=== PATIENT | male | born 1955 | race African-American/Black ===

== ENCOUNTER 2016-11-12 06:59 | Emergency (ER) | payer OTHER ==
[2016-11-12] MEDS ORDERED: SODIUM CHLORIDE 0.9% 1,000 ML IV STA (07:18)
[2016-11-12 07:39] LABS: Aty Lym Flag Moderate; CH 30.6; CHCM 32.3; HCT 41.6 % (39.0-53.0); HDW 2.26; HGB 13.3 gm/dL (13.0-17.5); MCH 30.6 pg (25.0-35.0); MCV 95.4 fL (80.0-100.0); Mean Platelet Volume 8.4; RBC 4.36 m/uL (4.30-5.90); RDW 15.6 % (11.5-15.5); WBC 3.3 k/uL (3.8-10.6); WBC (Perox) 3.12
[2016-11-12 07:51] LABS: ALT 41 U/L (21-72); AST 57 U/L (17-59); Alkaline Phosphatase 56 U/L (38-126); Anion Gap 13 mmol/L; Blood Urea Nitrogen 9 mg/dL (9-20); Calcium 9.1 mg/dL (8.4-10.2); Carbon Dioxide 26 mmol/L (22-30); Chloride 108 mmol/L (98-107); Glucose 94 mg/dL (74-99); Magnesium 1.9 mg/dL (1.6-2.3); Non-African American GFR(MDRD) >60 (>60 ml/min/1.73 sqM); Phosphorous 4.8 mg/dL (2.5-4.5); Sodium 147 mmol/L (137-145); Total Bilirubin 0.5 mg/dL (0.2-1.3); Total Protein 7.3 g/dL (6.3-8.2)
--- NOTE | 2016-11-12 07:53 | XR ---
EXAMINATION TYPE: XR chest 2V DATE OF EXAM: 11/12/2016 7:49 AM COMPARISON: 09/15/2015 HISTORY: Shortness of breath TECHNIQUE: Frontal and lateral views of the chest are obtained. FINDINGS: Scattered senescent parenchymal changes noted. Hyperinflation compatible with COPD. No evidence for infiltrate. No evidence for atelectasis. Heart size is stable. Mediastinal structures are stable and grossly unremarkable. No evidence for hilar prominence. Degenerative changes dorsal spine. IMPRESSION: 1. No evidence for acute pulmonary disease.
[2016-11-12 08:04] LABS: Creatine Kinase 419 U/L (55-170)
[2016-11-12 08:16] LABS: Troponin I <0.012 ng/mL (0.000-0.034)
[2016-11-12 08:42] LABS: Add Differential Manual Differential
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
[2016-11-12 08:44] LABS: Nucleated Red Blood Cells 0 /100 WBC (0-0); Total Cells Counted 100
[2016-11-12 08:46] LABS: Manual Review Performed
[2016-11-12 12:06] VITALS: BP 112/65; PULSE 70; RESP 16; TEMP 97.5
== END 2016-11-12 12:12 | disposition home or self-care (01) ==
LOC: EC 06:59
DX: F10.129 Alcohol abuse with intoxication, unspecified (principal); F17.200 Nicotine dependence, unspecified, uncomplicated; Z79.51 Long term (current) use of inhaled steroids; Z79.899 Other long term (current) drug therapy
CPT/HCPCS: 36415; 71020; 80053; 82075; 82550; 82553; 83735; 84100; 84484; 85025; 93005; 96360; 96361; 99285

== ENCOUNTER 2018-04-20 01:44 | Inpatient (IN) | payer MEDICARE, OTHER ==
[2018-04-20] MEDS ORDERED: methylPREDNISolone SOD SUCCI 125 MG/2 ML VIAL IV STA (01:53)
[2018-04-20] MEDS ORDERED: IPRATROPIUM-ALBUTEROL 3 ML NEB INHALATION STA (01:53)
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
--- NOTE | 2018-04-20 02:40 | XR ---
EXAMINATION TYPE: XR chest 2V DATE OF EXAM: 04/20/2018 COMPARISON: 11/12/2016 HISTORY: Difficulty breathing TECHNIQUE: Frontal and lateral views of the chest are obtained. FINDINGS: Heart and mediastinum are normal. Lungs are clear. Diaphragm is normal. Bony thorax is int act. Pulmonary vascularity is normal. IMPRESSION: No cardiopulmonary disease.. No change. There is some calcific change at the right corac oclavicular ligament.
[2018-04-20 02:45] LABS: HCT 42.8 % (39.0-53.0); HGB 13.8 gm/dL (13.0-17.5); MCH 30.4 pg (25.0-35.0); MCHC 32.3 g/dL (31.0-37.0); MCV 94.4 fL (80.0-100.0); Mean Platelet Volume 9.4; Platelet Count 141 k/uL (150-450); RBC 4.53 m/uL (4.30-5.90); RDW 14.9 % (11.5-15.5); WBC 2.2 k/uL (3.8-10.6)
[2018-04-20 02:51] LABS: ALT 102 U/L (21-72); AST 203 U/L (17-59); Albumin 4.1 g/dL (3.5-5.0); Alkaline Phosphatase 52 U/L (38-126); Anion Gap 11 mmol/L; Blood Urea Nitrogen 11 mg/dL (9-20); Calcium 9.1 mg/dL (8.4-10.2); Carbon Dioxide 26 mmol/L (22-30); Chloride 108 mmol/L (98-107); Glucose 141 mg/dL (74-99); Magnesium 1.5 mg/dL (1.6-2.3); Phosphorus 4.4 mg/dL (2.5-4.5); Potassium 4.2 mmol/L (3.5-5.1); Sodium 145 mmol/L (137-145); Total Bilirubin 0.4 mg/dL (0.2-1.3); Total Protein 6.8 g/dL (6.3-8.2)
[2018-04-20 03:06] LABS: Eosinophils # (M) 0.13 k/uL (0-0.7); Lymphocytes # (M) 0.66 k/uL (1.0-4.8); Neutrophils # (M) 1.21 k/uL (1.3-7.7); Neutrophils % (M) 55 %; Nucleated Red Blood Cells 0 /100 WBC (0-0); Total Cells Counted 100
[2018-04-20] MEDS ORDERED: ALBUTEROL NEBULIZED 2.5 MG/3 ML INHALATION STA ×2 (03:11→03:12)
[2018-04-20] MEDS ORDERED: SODIUM CHLORIDE 0.9% 1,000 ML IV STA (04:05)
[2018-04-20] MEDS ORDERED: LORazepam 2 MG/ML INJ IV PRN ×2 (04:06)
[2018-04-20] MEDS ORDERED: IPRATROPIUM-ALBUTEROL 3 ML NEB INHALATION PRN (04:10)
[2018-04-20] MEDS: SODIUM CHLORIDE 0.9% 1,000 ML IV SCH ×2 (04:52→18:05)
[2018-04-20 06:32] LABS: Glucose,Whole Blood 114 mg/dL (75-99)
[2018-04-20 06:55] VITALS: BMI 19.6
[2018-04-20 07:14] LABS: Glucose,Whole Blood 180 mg/dL (75-99)
[2018-04-20] MEDS: ALBUTEROL NEBULIZED 2.5 MG/3 ML INHALATION SCH ×4 (07:52→19:26)
[2018-04-20] MEDS: LORazepam 2 MG/ML INJ IV PRN ×3 (08:26→21:53)
[2018-04-20] MEDS ORDERED: predniSONE 20 MG TAB PO SCH (09:00)
[2018-04-20 11:26] LABS: Glucose,Whole Blood 392 mg/dL (75-99)
[2018-04-20] MEDS: INSULIN ASPART 100 UNIT/ML 1 ML 10 ML VIAL SQ SCH ×3 (11:37→21:41)
[2018-04-20] MEDS: THIAMINE 100 MG TAB PO SCH (13:25)
[2018-04-20] MEDS: FOLIC ACID 1 MG TAB PO SCH (13:25)
[2018-04-20] MEDS ORDERED: SODIUM CHLORIDE 0.9% 1,000 ML with MVI, ADULT NO.4 WITH VIT K 10 ML, THIAMINE 100 MG, F... IV ONE ×4 (15:34)
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
[2018-04-20] MEDS: 1: MVI, ADULT NO.4 WITH VIT K 10 ML, THIAMINE 100 MG, FOLIC ACID 1 MG in SODIUM CHLORIDE IV SCH ×4 (16:18)
[2018-04-20] MEDS: NICOTINE 21MG/24HR PATCH TRANSDERM SCH (16:19)
[2018-04-20] MEDS: HEPARIN SODIUM,PORCINE 5,000 UNIT/ML 1 ML VIAL SQ SCH ×2 (16:19→21:40)
[2018-04-20 17:11] LABS: Glucose,Whole Blood 137 mg/dL (75-99)
[2018-04-20 19:35] LABS: Hemoglobin A1C 5.9 % (4.0-6.0)
[2018-04-20 21:18] LABS: Glucose,Whole Blood 200 mg/dL (75-99)
[2018-04-20] MEDS: FAMOTIDINE 20 MG/2 ML VIAL IV SCH (21:38)
[2018-04-21] MEDS: LORazepam 2 MG/ML INJ IV PRN ×3 (00:44→13:15)
[2018-04-21 06:15] VITALS: RESP 16; TEMP 98.2
[2018-04-21] MEDS: SODIUM CHLORIDE 0.9% 1,000 ML IV SCH (06:37)
[2018-04-21] MEDS: 1: MVI, ADULT NO.4 WITH VIT K 10 ML, THIAMINE 100 MG, FOLIC ACID 1 MG in SODIUM CHLORIDE IV SCH ×4 (06:37)
[2018-04-21 07:36] LABS: Glucose,Whole Blood 91 mg/dL (75-99)
[2018-04-21] MEDS: ALBUTEROL NEBULIZED 2.5 MG/3 ML INHALATION SCH ×2 (07:38→11:14)
[2018-04-21] MEDS: INSULIN ASPART 100 UNIT/ML 1 ML 10 ML VIAL SQ SCH ×2 (07:48→13:19)
[2018-04-21] MEDS ORDERED: predniSONE 20 MG TAB PO SCH (09:00)
[2018-04-21 09:25] LABS: Basophils % (A) 0 %; Eosinophils # (A) 0.1 k/uL (0-0.7); Eosinophils % (A) 2 %; HCT 41.3 % (39.0-53.0); HGB 13.4 gm/dL (13.0-17.5); Lymphocytes # (A) 0.5 k/uL (1.0-4.8); Lymphocytes % (A) 15 %; MCH 30.5 pg (25.0-35.0); MCHC 32.5 g/dL (31.0-37.0); MCV 93.9 fL (80.0-100.0); Monocytes # (A) 0.2 k/uL (0-1.0); Monocytes % (A) 7 %; Neutrophils # (A) 2.7 k/uL (1.3-7.7); Neutrophils % (A) 76 %; Platelet Count 118 k/uL (150-450); RBC 4.39 m/uL (4.30-5.90); RDW 14.6 % (11.5-15.5); WBC 3.5 k/uL (3.8-10.6)
[2018-04-21 09:40] LABS: ALT 96 U/L (21-72); AST 157 U/L (17-59); Alkaline Phosphatase 54 U/L (38-126); Anion Gap 7 mmol/L; Bilirubin, Delta 0.2 mg/dL (0.0-0.2); Bilirubin,Unconjugated 0.6 mg/dL (0.0-1.1); Blood Urea Nitrogen 10 mg/dL (9-20); Calcium 9.3 mg/dL (8.4-10.2); Carbon Dioxide 31 mmol/L (22-30); Chloride 100 mmol/L (98-107); Glucose 108 mg/dL (74-99); Magnesium 1.4 mg/dL (1.6-2.3); Potassium 3.9 mmol/L (3.5-5.1); Sodium 138 mmol/L (137-145); Total Bilirubin 0.8 mg/dL (0.2-1.3); Total Protein 6.7 g/dL (6.3-8.2)
[2018-04-21] MEDS: NICOTINE 21MG/24HR PATCH TRANSDERM SCH (10:00)
[2018-04-21] MEDS: FAMOTIDINE 20 MG/2 ML VIAL IV SCH (10:00)
[2018-04-21] MEDS: HEPARIN SODIUM,PORCINE 5,000 UNIT/ML 1 ML VIAL SQ SCH (10:00)
[2018-04-21] MEDS ORDERED: Magnesium Replacement Protocol 1 EACH MISC MISCELLANE PRN (11:58)
[2018-04-21 12:01] VITALS: BP 142/87; PULSE 92
[2018-04-21] MEDS: THIAMINE 100 MG TAB PO SCH (12:05)
[2018-04-21] MEDS: FOLIC ACID 1 MG TAB PO SCH (12:05)
[2018-04-21] MEDS: MAGNESIUM SULFATE-D5W PMX 1 GM in DEXTROSE/WATER 1 100ML.BAG IVPB SCH ×3 (12:14→14:18)
[2018-04-21 12:27] LABS: Glucose,Whole Blood 112 mg/dL (75-99)
--- NOTE | 2018-04-21 13:30 | P.PN ---
Subjective This is a pleasant 62 years old female with past medical history of COPD, pneumonia, pulmonary embolism anticoagulation. current smoker and alcohol abuse. he presents because of worsening dyspnea over one week duration. states that he has long time complaints of dyspnea on and off on 4 months. over the last week it was getting worse although the patient was trying his best not to come to emergency room but eventually he decided to come. not associated with chest pain. patient states he has chronic cough and white phlegm 4 months. and 3 months history of bilateral knee pain. he states that he smokes about half pack per day. and drinks liquor/fourth About the point. they. last drink was 1 night prior to admission. patient admits to me using cocaine. Patient denies any urinary signs and symptoms. No change in bowel habits. He hadn't vomited one time about 3 days ago but not anymore however he felt nauseated currently on admission. No leg pain or induration per patient. By the time I saw the patient was still in me his breathing is almost at his baseline Patient states that he was diagnosed with PE about one year ago and I supposed to take a blood thinner but he stopped taking it after a short while by himself. is not on home oxygen on steroids. He has no history of seizure. And he doesn't follow up very well with outpatient [facility] On admission patient was noticed to be leukopenic with white BCs 2.2, platelets on the low side 141. High lactic acid 3.1 and 2.9. Hyperglycemia . Magnesium is 1.5. And liver enzymes were mildly elevated with a LT 102 and AST 203. Port is noted that oxygen saturation was 84 one time on room air, however currently is 99% on room air 04/21/2018 Patient has more tremors and jittery today with racing heart rate. And he needs his 3 more doses of Ativan since morning. Electrolytes been replaced. With the patient on magnesium oxide. Repeat labs showing improved leukopenia from 2.2 to 3.5K react lactic acid came back to normal at 0.9. Low magnesium was 1.4. Liver enzymes trending down from AST 203 to157, and a LT from 102 to 96. Physical therapy evaluation recommended home . Pulmonary consult for dyspnea, however patient telling me his breathing at baseline. He denies chest pain. No hemoptysis. No leg pain or swelling Objective - Vital Signs Vital signs: Vital Signs Temp 98.2 F 04/21/18 06:14 Pulse 92 04/21/18 12:00 Resp 16 04/21/18 06:14 BP 142/87 04/21/18 12:00 Pulse Ox 96 04/21/18 06:14 Intake & Output 04/20/18 04/21/18 04/21/18 18:59 06:59 18:59 Output Total 651 250 Balance -651 -250 Weight 69.5 kg Output: Urine 650 250 Emesis 1 Other: Voiding Method Urinal Urinal Urinal # Voids 1 1 # Bowel Movements 1 - Exam GENERAL: The patient is alert and oriented x3, not in any acute distress. Well developed, well nourished. HEENT: Pupils are round and equally reacting to light. EOMI. No scleral icterus. No conjunctival pallor. Normocephalic, atraumatic. No pharyngeal erythema. No thyromegaly. -CARDIOVASCULAR: S1 and S2 present. No murmurs, rubs, or gallops. Tachycardic -PULMONARY: Chest is clear to auscultation, no wheezing or crackles. Mild tachypnea ABDOMEN: Soft, nontender, nondistended, normoactive bowel sounds. No palpable organomegaly. MUSCULOSKELETAL: No joint swelling or deformity. -EXTREMITIES: No cyanosis, clubbing, or pedal edema. moderate hand tremor NEUROLOGICAL: Gross neurological examination did not reveal any focal deficits. SKIN: No rashes. - Labs CBC & Chem 7: 04/21/18 09:09 04/21/18 09:09 Labs: Abnormal Lab Results - Last 24 Hours (Table) 04/20/18 04/20/18 04/21/18 Range/Units 17:05 21:01 09:09 WBC 3.5 L (3.8-10.6) k/uL Plt Count 118 L (150-450) k/uL Lymphocytes # 0.5 L (1.0-4.8) k/uL Carbon Dioxide (22-30) mmol/L Creatinine (0.66-1.25) mg/dL Glucose (74-99) mg/dL POC Glucose (mg/dL) 137 H 200 H (75-99) mg/dL Magnesium (1.6-2.3) mg/dL AST (17-59) U/L ALT (21-72) U/L 04/21/18 04/21/18 Range/Units 09:09 12:24 WBC (3.8-10.6) k/uL Plt Count (150-450) k/uL Lymphocytes # (1.0-4.8) k/uL Carbon Dioxide 31 H (22-30) mmol/L Creatinine 0.59 L (0.66-1.25) mg/dL Glucose 108 H (74-99) mg/dL POC Glucose (mg/dL) 112 H (75-99) mg/dL Magnesium 1.4 L (1.6-2.3) mg/dL AST 157 H (17-59) U/L ALT 96 H (21-72) U/L Microbiology - Last 24 Hours (Table) 04/20/18 02:02 Blood Culture - Preliminary Blood No Growth after 24 hours Assessment and Plan Assessment: History of COPD, possible acute exacerbation Alcohol abuse, possible alcohol withdrawal Dehydration Hyperglycemia, we'll check for hemoglobin A1c Elevated liver enzymes, mostly secondary to alcoholism Ischemia Plan: This is a pleasant 62 years old male who presents because of alcohol abuse/ withdrawal, with possible COPD exacerbation. Patient was started on steroids, breathing treatments and oxygen. As well as normal saline for hydration. Patient also was started on a prednisone pills. Replace electrolytes. Start banana bag. Pulmonary consult. We'll continue to monitor her labs and vitals. Resume home medication. Continue with same treatment. Continue with symptomatic treatment. GI and DVT prophylaxis. Further recommendations based on the clinical course of the patient in Prophylaxis: Subcutaneous heparin GI prophylaxis: Pepcid PT/OT: Pending Prognosis is guarded
[2018-04-21] MEDS ORDERED: MAGNESIUM OXIDE 400 MG TAB PO SCH (21:00)
[2018-04-22] MEDS ORDERED: FAMOTIDINE 20 MG TAB PO SCH (09:00)
--- NOTE | 2018-04-22 09:44 | P.DS ---
Providers Date of admission: 04/21/18 14:41 Attending physician: Yasmin Adames Consults: 04/20/18 15:34 Consult Physician Urgent Consulting Provider: Mary Vidales Consult Reason/Comments: copd Do you want consulting provider notified?: Already Contacted Primary care physician: Stated None Hospital Course: please note this is not a true discharge summary because pt decided to leave AMA This is a pleasant 62 years old female with past medical history of COPD, pneumonia, pulmonary embolism anticoagulation. current smoker and alcohol abuse. he presents because of worsening dyspnea over one week duration. states that he has long time complaints of dyspnea on and off on 4 months. over the last week it was getting worse although the patient was trying his best not to come to emergency room but eventually he decided to come. not associated with chest pain. patient states he has chronic cough and white phlegm 4 months. and 3 months history of bilateral knee pain. he states that he smokes about half pack per day. and drinks liquor/fourth About the point. they. last drink was 1 night prior to admission. patient admits to me using cocaine. Patient denies any urinary signs and symptoms. No change in bowel habits. He hadn't vomited one time about 3 days ago but not anymore however he felt nauseated currently on admission. No leg pain or induration per patient. By the time I saw the patient was still in me his breathing is almost at his baseline Patient states that he was diagnosed with PE about one year ago and I supposed to take a blood thinner but he stopped taking it after a short while by himself. is not on home oxygen on steroids. He has no history of seizure. And he doesn't follow up very well with outpatient where [facility]. On admission patient was noticed to be leukopenic with white BCs 2.2, platelets on the low side 141. High lactic acid 3.1 and 2.9. Hyperglycemia . Magnesium is 1.5. And liver enzymes were mildly elevated with a LT 102 and AST 203. Port is noted that oxygen saturation was 84 one time on room air, however currently is 99% on room air 04/21/2018 Patient has more tremors and jittery today with racing heart rate. And he needs his 3 more doses of Ativan since morning. Electrolytes been replaced. With the patient on magnesium oxide. Repeat labs showing improved leukopenia from 2.2 to 3.5K react lactic acid came back to normal at 0.9. Low magnesium was 1.4. Liver enzymes trending down from AST 203 to157, and a LT from 102 to 96. Physical therapy evaluation recommended home . Pulmonary consult for dyspnea, however patient telling me his breathing at baseline. He denies chest pain. No hemoptysis. No leg pain or swelling i was called by the nurse later on on 04/21/2018 that pt wanted to sign leaving AMA, i asked the RN to talk to him to wait for me to come back but he did not want to wait for me and left AMA, based upon my evaluation pt has capacity to make medical decision . Patient Condition at Discharge: Stable Plan - Discharge Summary Discharge Rx Participant: No New Discharge Prescriptions: No Action Ranitidine HCl 150 mg PO BID Budesonide-Formot 160-4.5 Mcg [Symbicort 160-4.5 Mcg Inhaler] 2 puff INHALATION RT-BID Albuterol Sulfate [Ventolin HFA] 2 puff INHALATION RT-Q4H PRN PRN Reason: Wheezing Lisinopril [Zestril] 10 mg PO DAILY Ergocalciferol [Vitamin D2] 50,000 unit PO Q7D Discharge Medication List Albuterol Sulfate [Ventolin HFA] 2 puff INHALATION RT-Q4H PRN 11/12/16 [History] Budesonide-Formot 160-4.5 Mcg [Symbicort 160-4.5 Mcg Inhaler] 2 puff INHALATION RT-BID 11/12/16 [History] Ranitidine HCl 150 mg PO BID 11/12/16 [History] Ergocalciferol [Vitamin D2] 50,000 unit PO Q7D 04/20/18 [History] Lisinopril [Zestril] 10 mg PO DAILY 04/20/18 [History] Follow up Appointment(s)/Referral(s): None,Stated [Primary Care Provider] - 1-2 days Discharge Disposition: Left Against Medical Advice
== END 2018-04-21 15:00 | disposition left against medical advice (07) | DRG 191 ==
LOC: EC 01:44 → 4MS4W 04:39 → OBSVTOIN 04-21 14:41 → UNDODISOB 04-21 15:00
PROVIDERS: ADMIT Hospitalist; ATTEND Hospitalist
DX: J44.1 Chronic obstructive pulmonary disease with (acute) exacerbation (principal); F10.239 Alcohol dependence with withdrawal, unspecified; E87.2 Acidosis; D72.819 Decreased white blood cell count, unspecified; E86.0 Dehydration; F14.90 Cocaine use, unspecified, uncomplicated; F17.210 Nicotine dependence, cigarettes, uncomplicated; Z79.51 Long term (current) use of inhaled steroids; Z82.49 Family history of ischemic heart disease and other diseases of the circulatory system; Z86.711 Personal history of pulmonary embolism; Z87.01 Personal history of pneumonia (recurrent); Z79.899 Other long term (current) drug therapy; R73.9 Hyperglycemia, unspecified; R94.5 Abnormal results of liver function studies; M25.562 Pain in left knee; M25.561 Pain in right knee
CPT/HCPCS: 36415; 71046; 80048; 80053; 80076; 83036; 83605; 83735; 84100; 85025; 87040; 93005; 94640; 96361; 96374; 99285

== ENCOUNTER 2019-08-10 01:35 | Emergency (ER) | payer MEDICARE, OTHER ==
[2019-08-10 01:45] VITALS: BP 155/103; PULSE 109; RESP 18; TEMP 98.3
[2019-08-10] MEDS ORDERED: TOPICAL SKIN ADHESIVE 1 EACH AMP TOPICAL ONE (02:08)
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
== END 2019-08-10 02:20 | disposition home or self-care (01) ==
LOC: EC 01:35
DX: S01.81XA Laceration without foreign body of other part of head, initial encounter (principal); Z02.89 Encounter for other administrative examinations; J43.9 Emphysema, unspecified; Z87.891 Personal history of nicotine dependence; Z79.51 Long term (current) use of inhaled steroids; Z79.899 Other long term (current) drug therapy; X99.1XXA Assault by knife, initial encounter; Y92.009 Unspecified place in unspecified non-institutional (private) residence as the place of occurrence of the external cause
CPT/HCPCS: 12011; 99284

== ENCOUNTER 2019-12-05 07:48 | Emergency (ER) | payer MEDICARE ==
[2019-12-05 07:58] VITALS: BP 116/75; PULSE 80; RESP 16; TEMP 98.2
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
== END 2019-12-05 08:35 | disposition home or self-care (01) ==
LOC: EC 07:48
DX: Z03.818 Encounter for observation for suspected exposure to other biological agents ruled out (principal); J44.9 Chronic obstructive pulmonary disease, unspecified; Z87.01 Personal history of pneumonia (recurrent); Z86.711 Personal history of pulmonary embolism; Z87.891 Personal history of nicotine dependence; Z79.51 Long term (current) use of inhaled steroids; Z79.899 Other long term (current) drug therapy; Z53.29 Procedure and treatment not carried out because of patient's decision for other reasons
CPT/HCPCS: 87635; 99283

== ENCOUNTER 2020-01-07 19:43 | Emergency (ER) | payer MEDICARE ==
[2020-01-07 19:52] VITALS: RESP 18; TEMP 98
[2020-01-07] MEDS ORDERED: SODIUM CHLORIDE 0.9% 1,000 ML IV STA (20:13)
[2020-01-07] MEDS ORDERED: ONDANSETRON 4 MG/2 ML VIAL IVP STA (20:13)
[2020-01-07] MEDS ORDERED: FAMOTIDINE 20 MG/2 ML VIAL IV STA (20:14)
[2020-01-07 21:01] LABS: ALT 67 U/L (4-49); AST 142 U/L (17-59); African American GFR (CKD) >90 (>60 ml/min/1.73 sqM); Alkaline Phosphatase 66 U/L (38-126); Amylase 72 U/L (30-110); Anion Gap 10 mmol/L; Blood Urea Nitrogen 11 mg/dL (9-20); Calcium 8.6 mg/dL (8.4-10.2); Carbon Dioxide 24 mmol/L (22-30); Chloride 106 mmol/L (98-107); Glucose 121 mg/dL (74-99); Non-African American GFR(CKD) >90 (>60 ml/min/1.73 sqM); Potassium 4.3 mmol/L (3.5-5.1); Sodium 140 mmol/L (137-145); Total Bilirubin 0.3 mg/dL (0.2-1.3); Total Protein 6.7 g/dL (6.3-8.2)
[2020-01-07] MEDS ORDERED: MORPHINE SULFATE 2 MG/ML SYRINGE IVP STA (21:01)
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
[2020-01-07 21:06] LABS: Alcohol 269 mg/dL
[2020-01-07 21:10] LABS: Anisocytosis Slight; Basophils % (A) 1 %; Eosinophils # (A) 0.1 k/uL (0-0.7); Eosinophils % (A) 4 %; HCT 38.9 % (39.0-53.0); HGB 12.7 gm/dL (13.0-17.5); Lymphocytes # (A) 0.9 k/uL (1.0-4.8); Lymphocytes % (A) 32 %; MCH 30.8 pg (25.0-35.0); MCHC 32.6 g/dL (31.0-37.0); MCV 94.6 fL (80.0-100.0); Monocytes # (A) 0.2 k/uL (0-1.0); Monocytes % (A) 7 %; Neutrophils # (A) 1.5 k/uL (1.3-7.7); Neutrophils % (A) 52 %; RBC 4.11 m/uL (4.30-5.90); RDW 16.1 % (11.5-15.5); WBC 2.9 k/uL (3.8-10.6)
--- NOTE | 2020-01-07 21:11 | CT ---
EXAMINATION TYPE: CT abdomen pelvis w con DATE OF EXAM: 01/07/2020 COMPARISON: NONE HISTORY: 64-year-old male abdominal pain, nausea, vomiting TECHNIQUE: Contiguous axial scanning of the abdomen and pelvis following administration of 100 ml Iso kyree 300 IV contrast. Delayed images through the kidneys and coronal/sagittal reconstructions perform ed. CT DLP: 674.3 mGycm Automated exposure control for dose reduction was used. FINDINGS: Heart normal size without pericardial effusion. Patchy groundglass within the right lower lobe. No pl eural effusion. Some fluid within the distal esophagus could reflect gastroesophageal reflux. Some prominent fold thi ckening along the fundus of the stomach. Liver mildly enlarged at 18.2 cm with marked low attenuation. Portal venous system is patent. No bili moraima ductal dilatation. Gallbladder, adrenal glands, kidneys, spleen, and pancreas appear within normal limits. Prominent fluid-filled small bowel loops throughout the abdomen. No abnormal bowel dilatation, free f luid, or free air. Moderate circumferential wall thickening right side of the colon, refer to coronal image 42. Small tiny umbilical hernia. Sigmoid diverticulosis. No inflammation centered along this region to suggest acute diverticulitis. Moderate prostatic calcifications, and iliac arteries. Ectasia left common iliac artery up to 1.7 cm and right common iliac artery up to 1.9 cm. Mild circumferential bladder wall thickening. Prostate gland measures 5.1 cm wide. No abnormal fluid collection in the pelvis or pelvic lymphadenopathy. Multiple pelvic phleboliths. Bones: Mild degenerative changes of the hips. Moderate degenerative disc disease L4-L5. Facet arthrop athy mid to lower lumbar spine. IMPRESSION: 1. MODERATE CIRCUMFERENTIAL WALL THICKENING ASCENDING COLON AND PROMINENT FLUID-FILLED SMALL BOWEL LO OPS THROUGHOUT. CORRELATE FOR ENTEROCOLITIS. 2. ADDITIONAL PROMINENT GASTRIC FOLD THICKENING SUGGESTS CHRONIC GASTRITIS. SOME FLUID IN THE DISTAL ESOPHAGUS COULD REFLECT GASTROESOPHAGEAL REFLUX. 3. A FEW PATCHES OF GROUNDGLASS IN THE RIGHT LOWER LOBE SUGGEST SMALL INFECTIOUS/INFLAMMATORY FOCI. C ORRELATE TO EXCLUDE EARLY ATYPICAL PNEUMONIA. 4. SEVERE HEPATIC STEATOSIS. CORRELATE WITH LFT's, LIPID PROFILE, AND PATIENT RISK FACTORS. 5. MILD CIRCUMFERENCE OF BLADDER WALL THICKENING COULD RELATE TO CHRONIC BLADDER WALL HYPERTROPHY OR CYSTITIS. CLINICALLY CORRELATE.
[2020-01-07 21:23] LABS: Anisocytosis (M) Present; Platelet Count 99 k/uL (150-450)
[2020-01-07 21:23] LABS: Appearance,Urine Clear (Clear); Bilirubin,Urine Negative (Negative); Blood,Urine Negative (Negative); Color,Urine Yellow; Glucose,Urine (UA) Negative (Negative); Ketones,Urine Negative (Negative); Leukocyte Esterase,Urine Negative (Negative); Nitrite,Urine Negative (Negative); Protein,Urine Negative (Negative); Specific Gravity,Urine 1.031 (1.001-1.035); Urobilinogen,Urine <2.0 mg/dL (<2.0)
[2020-01-07] MEDS ORDERED: AMOXIC-POT CLAV 875MG STARTER PACK 2 TAB BTL PO STA (22:23)
[2020-01-07] MEDS ORDERED: AZITHROMYCIN 500 MG TAB PO STA (22:23)
[2020-01-07 22:32] VITALS: BP 102/68; PULSE 78
== END 2020-01-07 22:35 | disposition home or self-care (01) ==
LOC: EC 19:43
DX: J18.9 Pneumonia, unspecified organism (principal); F10.20 Alcohol dependence, uncomplicated; K29.70 Gastritis, unspecified, without bleeding; F17.200 Nicotine dependence, unspecified, uncomplicated; Z86.711 Personal history of pulmonary embolism; Z79.51 Long term (current) use of inhaled steroids; Z79.899 Other long term (current) drug therapy
CPT/HCPCS: 99284 ×2; 96374 ×2; 96375 ×3; 96361 ×2; 36415; 80053; 82150; 83605; 83690; 85025; 81003; 74177; G0480; J2405; J2270; Q9967; 80320

== ENCOUNTER 2020-02-15 12:42 | Observation (INO) | payer MEDICARE ==
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
[2020-02-15] MEDS ORDERED: NALOXONE 0.4 MG/ML 1 ML VIAL IV PRN (14:17)
[2020-02-15] MEDS ORDERED: LORazepam 2 MG/ML INJ IV PRN ×3 (14:18)
[2020-02-15] MEDS ORDERED: SODIUM CHLORIDE 0.9% 1,000 ML IV SCH (14:30)
[2020-02-15 15:14] LABS: ALT 83 U/L (4-49); AST 229 U/L (17-59); African American GFR (CKD) >90 (>60 ml/min/1.73 sqM); Albumin 4.3 g/dL (3.5-5.0); Alkaline Phosphatase 73 U/L (38-126); Anion Gap 9 mmol/L; Blood Urea Nitrogen 8 mg/dL (9-20); Calcium 8.3 mg/dL (8.4-10.2); Carbon Dioxide 27 mmol/L (22-30); Chloride 108 mmol/L (98-107); Glucose 102 mg/dL (74-99); Non-African American GFR(CKD) >90 (>60 ml/min/1.73 sqM); Potassium 3.9 mmol/L (3.5-5.1); Sodium 144 mmol/L (137-145); Total Bilirubin 0.4 mg/dL (0.2-1.3); Total Protein 6.9 g/dL (6.3-8.2)
[2020-02-15 15:23] LABS: HCT 39.1 % (39.0-53.0); HGB 12.9 gm/dL (13.0-17.5); MCH 31.5 pg (25.0-35.0); MCHC 32.9 g/dL (31.0-37.0); MCV 95.7 fL (80.0-100.0); Mean Platelet Volume 8.9; Platelet Count 124 k/uL (150-450); RBC 4.09 m/uL (4.30-5.90); RDW 15.8 % (11.5-15.5)
[2020-02-15 15:24] LABS: Alcohol 386 mg/dL
[2020-02-15 16:01] LABS: Eosinophils # (M) 0.06 k/uL (0-0.7); Monocytes # (M) 0.02 k/uL (0-1.0); Neutrophils # (M) 1.32 k/uL (1.3-7.7); Neutrophils % (M) 66 %; Nucleated Red Blood Cells 0 /100 WBC (0-0); Polychromasia Present; Total Cells Counted 100
[2020-02-15] MEDS: THIAMINE 100 MG TAB PO SCH (17:36)
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
[2020-02-15] MEDS ORDERED: IPRATROPIUM-ALBUTEROL 3 ML NEB INHALATION SCH (20:00)
[2020-02-16] MEDS ORDERED: ACETAMINOPHEN TAB 325 MG TAB PO STA (04:21)
[2020-02-16 05:17] LABS: HGB 12.9 gm/dL (13.0-17.5); MCH 31.9 pg (25.0-35.0); MCHC 33.1 g/dL (31.0-37.0); MCV 96.3 fL (80.0-100.0); Mean Platelet Volume 8.9; Platelet Count 128 k/uL (150-450); RBC 4.05 m/uL (4.30-5.90); RDW 15.8 % (11.5-15.5); WBC 3.7 k/uL (3.8-10.6)
[2020-02-16 05:26] LABS: ALT 83 U/L (4-49); AST 204 U/L (17-59); African American GFR (CKD) >90 (>60 ml/min/1.73 sqM); Albumin 4.2 g/dL (3.5-5.0); Alkaline Phosphatase 79 U/L (38-126); Anion Gap 8 mmol/L; Blood Urea Nitrogen 8 mg/dL (9-20); Calcium 8.8 mg/dL (8.4-10.2); Carbon Dioxide 27 mmol/L (22-30); Chloride 104 mmol/L (98-107); Glucose 82 mg/dL (74-99); Magnesium 1.4 mg/dL (1.6-2.3); Non-African American GFR(CKD) >90 (>60 ml/min/1.73 sqM); Potassium 3.8 mmol/L (3.5-5.1); Sodium 139 mmol/L (137-145); Total Bilirubin 0.8 mg/dL (0.2-1.3); Total Protein 6.8 g/dL (6.3-8.2)
[2020-02-16] MEDS: IPRATROPIUM-ALBUTEROL 3 ML NEB INHALATION PRN ×2 (07:53→11:38)
[2020-02-16] MEDS: THIAMINE 100 MG TAB PO SCH (08:33)
[2020-02-16] MEDS: MAGNESIUM SULFATE-D5W PMX 1 GM in DEXTROSE/WATER 1 100ML.BAG IVPB SCH ×2 (08:33→10:45)
[2020-02-16 08:36] VITALS: BP 137/82; RESP 16; TEMP 98.7
[2020-02-16] MEDS ORDERED: MULTIVITAMINS, THERA 1 EACH TAB PO SCH (09:00)
[2020-02-16] MEDS ORDERED: FOLIC ACID 1 MG TAB PO SCH (09:00)
--- NOTE | 2020-02-16 10:24 | P.DS ---
Providers Date of admission: 02/15/20 14:17 Expected date of discharge: 02/16/20 Attending physician: Alyse Flores MD Primary care physician: [facility] Course: This is a 64-year-old male with past medical history significant for underlying COPD, heavy alcohol abuse, who presented to the emergency room with alcohol intoxication. Patient was evaluated in the ER and placed on observation for IV fluid hydration. He was found to have mild transaminitis and stable pancytopenia secondary to alcohol abuse. His overall condition improved. On the day of my evaluation patient was awake and alert. Patient did not trigger CIWA protocol per nursing staff. He was counseled extensively regarding alcohol cessation. He told me that he resides with his sister and will be discharged there in a stable condition. Given prescription for folic acid and thiamine. For further details about this hospitalization please refer to the electronic chart. Patient Condition at Discharge: Poor Plan - Discharge Summary New Discharge Prescriptions: New Folic Acid 1 mg PO DAILY #30 tab Thiamine [Vitamin B-1] 100 mg PO BID-W/MEALS #30 tab Continue Budesonide-Formot 160-4.5 Mcg [Symbicort 160-4.5 Mcg Inhaler] 2 puff INHALATION RT-BID Albuterol Sulfate [Ventolin HFA] 2 puff INHALATION RT-Q4H PRN PRN Reason: Wheezing Omeprazole 20 mg PO DAILY #30 capsule.dr Discharge Medication List Albuterol Sulfate [Ventolin HFA] 2 puff INHALATION RT-Q4H PRN 11/12/16 [History] Budesonide-Formot 160-4.5 Mcg [Symbicort 160-4.5 Mcg Inhaler] 2 puff INHALATION RT-BID 11/12/16 [History] Omeprazole 20 mg PO DAILY #30 capsule. 01/07/20 [Rx] Folic Acid 1 mg PO DAILY #30 tab 02/16/20 [Rx] Thiamine [Vitamin B-1] 100 mg PO BID-W/MEALS #30 tab 02/16/20 [Rx] Follow up Appointment(s)/Referral(s): [facility] [Primary Care Provider] - 1-2 days Discharge Disposition: HOME SELF-CARE
[2020-02-16 11:51] VITALS: PULSE 95
== END 2020-02-16 12:27 | disposition home or self-care (01) ==
LOC: EC 12:42 → 1SOBS 14:17
PROVIDERS: ADMIT Internal Medicine; ATTEND Internal Medicine
DX: F10.129 Alcohol abuse with intoxication, unspecified (principal); J43.9 Emphysema, unspecified; Y90.8 Blood alcohol level of 240 mg/100 ml or more; Z59.0 Homelessness; Z72.0 Tobacco use; Z79.51 Long term (current) use of inhaled steroids; Z82.49 Family history of ischemic heart disease and other diseases of the circulatory system; Z86.711 Personal history of pulmonary embolism; Z91.14 Patient's other noncompliance with medication regimen; I10 Essential (primary) hypertension; D61.818 Other pancytopenia; Z03.818 Encounter for observation for suspected exposure to other biological agents ruled out; R74.0 Nonspecific elevation of levels of transaminase and lactic acid dehydrogenase [LDH]; Z71.41 Alcohol abuse counseling and surveillance of alcoholic
CPT/HCPCS: 82075; 96365; 96366; 96375; 99285; 36415; 94640 ×2; 80053 ×2; 83735; 85025; 85027; G0378 ×2; G0480; U0003; J2060; J3475; 80320

== ENCOUNTER 2020-03-02 11:29 | Inpatient (IN) | payer MEDICARE ==
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
[2020-03-02] MEDS ORDERED: THIAMINE 100 MG/ML 2 ML VIAL IM STA (12:08)
[2020-03-02] MEDS ORDERED: LORazepam 2 MG/ML INJ IV PRN ×2 (12:08)
[2020-03-02 12:30] LABS: Basophils % (A) 0 %; Eosinophils # (A) 0.1 k/uL (0-0.7); Eosinophils % (A) 1 %; HCT 39.8 % (39.0-53.0); HGB 12.8 gm/dL (13.0-17.5); Lymphocytes # (A) 0.7 k/uL (1.0-4.8); Lymphocytes % (A) 10 %; MCH 31.1 pg (25.0-35.0); MCHC 32.2 g/dL (31.0-37.0); MCV 96.6 fL (80.0-100.0); Mean Platelet Volume 10.2; Monocytes # (A) 0.5 k/uL (0-1.0); Monocytes % (A) 7 %; Neutrophils # (A) 5.3 k/uL (1.3-7.7); Neutrophils % (A) 80 %; Platelet Count 151 k/uL (150-450); RBC 4.12 m/uL (4.30-5.90); RDW 15.1 % (11.5-15.5); WBC 6.6 k/uL (3.8-10.6)
[2020-03-02 12:39] LABS: African American GFR (CKD) 23 (>60 ml/min/1.73 sqM); Alcohol <10 mg/dL; Anion Gap 12 mmol/L; Blood Urea Nitrogen 25 mg/dL (9-20); Calcium 9.6 mg/dL (8.4-10.2); Carbon Dioxide 21 mmol/L (22-30); Chloride 108 mmol/L (98-107); Glucose 120 mg/dL (74-99); Magnesium 1.4 mg/dL (1.6-2.3); Non-African American GFR(CKD) 20 (>60 ml/min/1.73 sqM); Potassium 3.5 mmol/L (3.5-5.1); Sodium 141 mmol/L (137-145)
[2020-03-02 12:41] LABS: Partial Thromboplastin Time 23.4 sec (22.0-30.0)
[2020-03-02 12:51] LABS: Lactic Acid, Venous 3.4 mmol/L (0.7-2.0)
[2020-03-02] MEDS ORDERED: SODIUM CHLORIDE 0.9% 1,000 ML IV STA (12:58)
--- NOTE | 2020-03-02 13:51 | CT ---
EXAMINATION TYPE: CT brain wo con DATE OF EXAM: 03/02/2020 COMPARISON: 01/05/2015 HISTORY: altered mental status CT DLP: 1094.4 mGycm Automated exposure control for dose reduction was used. FINDINGS: Mild generalized degenerative change. Low-attenuation in the white matter is nonspecific but most typ ical remote microvascular ischemia. No midline shift or mass effect. Calvarium intact. Changes of chr onic sinusitis noted. IMPRESSION: 1. Mild degenerative change correlate for remote microvascular ischemic white matter change. 2. No acute hemorrhage or mass effect.
--- NOTE | 2020-03-02 13:58 | XR ---
EXAMINATION TYPE: XR chest 1V portable DATE OF EXAM: 03/02/2020 COMPARISON: 04/20/2018 HISTORY: Altered mental status TECHNIQUE: Single frontal view of the chest is obtained. FINDINGS: Metallic density overlying the left lung apex likely foreign body. Arthropathy of the shou lders. Heart size normal. No overt failure. Hyperinflation could be associated with COPD. IMPRESSION: 1. Correlate for COPD.
[2020-03-02] MEDS ORDERED: ONDANSETRON 4 MG/2 ML VIAL IVP PRN (14:12)
[2020-03-02] MEDS ORDERED: ACETAMINOPHEN TAB 325 MG TAB PO PRN (14:12)
[2020-03-02] MEDS ORDERED: NALOXONE 0.4 MG/ML 1 ML VIAL IV PRN (14:12)
[2020-03-02 14:48] LABS: Appearance,Urine Cloudy (Clear); Bilirubin,Urine 1+ (Negative); Blood,Urine Small (Negative); Color,Urine Yellow; Glucose,Urine (UA) Negative (Negative); Hyaline Casts,Urine 241 /lpf (0-2); Ketones,Urine Trace (Negative); Leukocyte Esterase,Urine Trace (Negative); Mucus,Urine Many /hpf; Nitrite,Urine Negative (Negative); PH, Urine 5.5 (5.0-8.0); Protein,Urine 2+ (Negative); RBC,Urine 3 /hpf (0-5); Specific Gravity,Urine 1.028 (1.001-1.035); Squamous Epithelial Cell,Urine 3 /hpf (0-4); WBC,Urine 11 /hpf (0-5)
[2020-03-02 14:53] LABS: Amphetamine Screen,Urine Not Detected (NotDetected); Barbiturate Screen,Urine Not Detected (NotDetected); Benzodiazepines Screen,Urine Not Detected (NotDetected); Cocaine Screen,Urine Not Detected (NotDetected); Methadone Screen, Urine Not Detected (NotDetected); Opiate Screen,Urine Not Detected (NotDetected); Oxycodone Screen, Urine Not Detected (NotDetected); Phencyclidine Screen,Urine Not Detected (NotDetected); Tricyclic Antidepressant,Urine Detected (NotDetected); Urn Cannabinoid Scrn Not Detected (NotDetected)
[2020-03-02] MEDS: SODIUM CHLORIDE 0.9% 1,000 ML IV SCH ×2 (15:26→23:35)
[2020-03-02] MEDS: MAGNESIUM SULFATE-D5W PMX 1 GM in DEXTROSE/WATER 1 100ML.BAG IVPB SCH ×2 (17:17→18:32)
[2020-03-02] MEDS: LORazepam 2 MG/ML INJ IV PRN ×2 (17:17→17:34)
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
[2020-03-02] MEDS: THIAMINE 100 MG TAB PO SCH (17:46)
[2020-03-02] MEDS ORDERED: LORazepam 2 MG/ML INJ IV STA (18:05)
[2020-03-02] MEDS ORDERED: ZIPRASIDONE 20 MG VIAL IM STA (18:38)
[2020-03-02] MEDS: HEPARIN SODIUM,PORCINE 5,000 UNIT/ML 1 ML VIAL SQ SCH (20:25)
[2020-03-02] MEDS: chlordiazePOXIDE 25 MG CAP PO SCH (23:38)
[2020-03-03 04:50] VITALS: RESP 16
[2020-03-03] MEDS: SODIUM CHLORIDE 0.9% 1,000 ML IV SCH (07:12)
[2020-03-03] MEDS: THIAMINE 100 MG TAB PO SCH ×2 (07:13→16:26)
[2020-03-03 07:35] LABS: HCT 41.3 % (39.0-53.0); HGB 13.2 gm/dL (13.0-17.5); MCH 30.9 pg (25.0-35.0); MCV 96.5 fL (80.0-100.0); Platelet Count 162 k/uL (150-450); RBC 4.28 m/uL (4.30-5.90); RDW 14.7 % (11.5-15.5); WBC 2.7 k/uL (3.8-10.6)
[2020-03-03 07:49] LABS: Basophils # (M) 0.03 k/uL (0-0.2); Eosinophils # (M) 0.14 k/uL (0-0.7); Lymphocytes # (M) 0.51 k/uL (1.0-4.8); Monocytes # (M) 0.32 k/uL (0-1.0); Neutrophils % (M) 63 %; Nucleated Red Blood Cells 0 /100 WBC (0-0); Total Cells Counted 100
[2020-03-03 08:31] LABS: ALT 66 U/L (4-49); AST 120 U/L (17-59); African American GFR (CKD) >90 (>60 ml/min/1.73 sqM); Albumin 3.9 g/dL (3.5-5.0); Alkaline Phosphatase 75 U/L (38-126); Anion Gap 7 mmol/L; Blood Urea Nitrogen 16 mg/dL (9-20); Calcium 8.5 mg/dL (8.4-10.2); Carbon Dioxide 21 mmol/L (22-30); Chloride 112 mmol/L (98-107); Glucose 67 mg/dL (74-99); Non-African American GFR(CKD) >90 (>60 ml/min/1.73 sqM); Sodium 140 mmol/L (137-145); Total Bilirubin 1.2 mg/dL (0.2-1.3); Total Protein 6.7 g/dL (6.3-8.2)
[2020-03-03 08:50] LABS: Potassium 3.8 mmol/L (3.5-5.1)
[2020-03-03] MEDS ORDERED: PANTOPRAZOLE 40 MG/10 ML VIAL IV SCH (09:00)
[2020-03-03] MEDS: HEPARIN SODIUM,PORCINE 5,000 UNIT/ML 1 ML VIAL SQ SCH (09:18)
[2020-03-03] MEDS: chlordiazePOXIDE 25 MG CAP PO SCH ×2 (09:18→16:26)
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
[2020-03-03 17:40] VITALS: BP 153/99; PULSE 82; TEMP 98.4
== END 2020-03-03 17:36 | DRG 897 ==
LOC: EC 11:29 → 3SCARD 14:12
PROVIDERS: ADMIT Family Medicine; ATTEND Family Medicine
DX: F10.230 Alcohol dependence with withdrawal, uncomplicated (principal); E72.20 Disorder of urea cycle metabolism, unspecified; N17.9 Acute kidney failure, unspecified; E87.2 Acidosis; J43.9 Emphysema, unspecified; E83.42 Hypomagnesemia; E86.0 Dehydration; R44.1 Visual hallucinations; F17.210 Nicotine dependence, cigarettes, uncomplicated; E86.1 Hypovolemia; M25.511 Pain in right shoulder; Y90.0 Blood alcohol level of less than 20 mg/100 ml; V18.4XXA Pedal cycle driver injured in noncollision transport accident in traffic accident, initial encounter; Y93.55 Activity, bike riding; Z86.711 Personal history of pulmonary embolism; Z87.01 Personal history of pneumonia (recurrent); Z87.828 Personal history of other (healed) physical injury and trauma; Z82.49 Family history of ischemic heart disease and other diseases of the circulatory system
CPT/HCPCS: 36415; 70450; 71045; 80048; 80053; 80306; 80320; 81001; 82075; 82140; 83605; 83735; 84484; 85025; 85610; 85730; 87086; 93005; 96360; 96361; 99285

== ENCOUNTER 2021-04-02 05:50 | Emergency (ER) | payer MEDICARE ==
[2021-04-02 06:02] VITALS: TEMP 97.7
[2021-04-02] MEDS ORDERED: IPRATROPIUM-ALBUTEROL 3 ML NEB INHALATION STA (06:12)
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
[2021-04-02 06:42] LABS: HCT 42.8 % (39.0-53.0); HGB 14.3 gm/dL (13.0-17.5); MCH 32.9 pg (25.0-35.0); MCHC 33.5 g/dL (31.0-37.0); MCV 98.4 fL (80.0-100.0); Macrocytosis Slight; Mean Platelet Volume 8.9; Platelet Count 174 k/uL (150-450); RBC 4.36 m/uL (4.30-5.90); RDW 15.7 % (11.5-15.5); WBC 2.5 k/uL (3.8-10.6)
[2021-04-02 06:43] LABS: ALT 99 U/L (4-49); AST 171 U/L (17-59); African American GFR (CKD) >90 (>60 ml/min/1.73 sqM); Albumin 4.4 g/dL (3.5-5.0); Alkaline Phosphatase 63 U/L (38-126); Anion Gap 11 mmol/L; Blood Urea Nitrogen 8 mg/dL (9-20); Calcium 9.1 mg/dL (8.4-10.2); Carbon Dioxide 26 mmol/L (22-30); Chloride 106 mmol/L (98-107); Glucose 100 mg/dL (74-99); Non-African American GFR(CKD) >90 (>60 ml/min/1.73 sqM); Sodium 143 mmol/L (137-145); Total Bilirubin 0.5 mg/dL (0.2-1.3); Total Protein 7.3 g/dL (6.3-8.2)
[2021-04-02] MEDS ORDERED: predniSONE 50 MG TAB PO STA (06:43)
[2021-04-02 06:49] LABS: Partial Thromboplastin Time 26.5 sec (22.0-30.0); Prothrombin Time 10.3 sec (9.0-12.0)
[2021-04-02 07:05] LABS: Eosinophils # (M) 0.43 k/uL (0-0.7); Neutrophils # (M) 0.78 k/uL (1.3-7.7); Neutrophils % (M) 31 %; Nucleated Red Blood Cells 0 /100 WBC (0-0); Target Cells Present; Total Cells Counted 100
[2021-04-02 07:30] VITALS: RESP 20
--- NOTE | 2021-04-02 08:04 | CT ---
EXAMINATION TYPE: CT chest angio for PE DATE OF EXAM: 04/02/2021 COMPARISON: 09/15/2015 HISTORY: MARGE, elevated Ddimer CT DLP: 247 mGycm CONTRAST: CT chest with contrast and 3D reconstruction with MIP imaging is performed with IV Contrast, patient injected with 74 mL of Isovue 370. Contrast-enhanced CT of the chest was performed through the course of the pulmonary arteries with aleena g and mediastinal window settings submitted. 3D reconstruction with MIP imaging was also performed. PULMONARY ARTERIES: The pulmonary arteries and their major tributaries are patent. I do not see juan dence for sizable filling defect to suggest pulmonary embolic process. LUNGS: The lungs are clear and free of infiltrate. No evidence for atelectasis. No pulmonary nodule or mass is detected. Linear parenchymal scarring in the region of the lingula. No pleural effusion. MEDIASTINUM: Ascending thoracic aortic aneurysm measures 4.5 cm. The heart is not enlarged. No evide nce for mediastinal mass. No mediastinal lymph nodes greater than 1cm. HILAR STRUCTURES: No evidence for mass. No hilar lymph nodes greater than 1 cm. UPPER ABDOMEN: Gastric wall thickening. Small hiatal hernia. Fatty liver. IMPRESSION: 1. No evidence for Pulmonary embolism at this time.
[2021-04-02 08:33] VITALS: BP 153/89; PULSE 84
== END 2021-04-02 08:33 | disposition home or self-care (01) ==
LOC: EC 05:50
DX: J44.1 Chronic obstructive pulmonary disease with (acute) exacerbation (principal); F17.200 Nicotine dependence, unspecified, uncomplicated; Z86.711 Personal history of pulmonary embolism
CPT/HCPCS: 99285; 36415; 94640; 85379; 80053; 83605; 84484; 85025; 85610; 85730; 71046; 71275; J7512; Q9967

== ENCOUNTER 2021-04-16 12:02 | Emergency (ER) | payer MEDICARE ==
[2021-04-16 13:00] VITALS: BP 119/82; RESP 18; TEMP 98.8
[2021-04-16] MEDS ORDERED: methylPREDNISolone SOD SUCCI 125 MG/2 ML VIAL IM ONE (13:50)
[2021-04-16] MEDS ORDERED: IPRATROPIUM-ALBUTEROL 3 ML NEB INHALATION STA (13:50)
[2021-04-16] MEDS ORDERED: SYMBICORT 80-4.5 MCG INHALER INHALATION STA (13:51)
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
[2021-04-16 15:42] VITALS: PULSE 100
== END 2021-04-16 15:51 | disposition home or self-care (01) ==
LOC: EC 12:02
DX: J44.9 Chronic obstructive pulmonary disease, unspecified (principal); F17.200 Nicotine dependence, unspecified, uncomplicated; F10.10 Alcohol abuse, uncomplicated; F14.90 Cocaine use, unspecified, uncomplicated
CPT/HCPCS: 94640; 99284; 96372; J2930

== ENCOUNTER 2023-02-09 04:44 | Inpatient (IN) | payer MEDICARE, OTHER ==
[2023-02-09] MEDS ORDERED: SODIUM CHLORIDE 0.9% 1,000 ML IV STA (05:06)
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
[2023-02-09 05:38] LABS: ALT 90 U/L (4-49); AST 219 U/L (17-59); African American GFR (CKD) >90 (>60 ml/min/1.73 sqM); Albumin 4.8 g/dL (3.5-5.0); Alkaline Phosphatase 81 U/L (38-126); Anion Gap 20 mmol/L; Blood Urea Nitrogen 8 mg/dL (9-20); Calcium 8.8 mg/dL (8.4-10.2); Carbon Dioxide 17 mmol/L (22-30); Chloride 101 mmol/L (98-107); Glucose 88 mg/dL (74-99); Magnesium 1.4 mg/dL (1.6-2.3); Non-African American GFR(CKD) >90 (>60 ml/min/1.73 sqM); Potassium 3.7 mmol/L (3.5-5.1); Sodium 138 mmol/L (137-145); Total Bilirubin 0.7 mg/dL (0.2-1.3); Total Protein 8.3 g/dL (6.3-8.2)
[2023-02-09 05:39] LABS: Partial Thromboplastin Time 26.6 sec (22.0-30.0); Prothrombin Time 10.6 sec (9.0-12.0)
[2023-02-09 05:53] LABS: HCT 38.8 % (39.0-53.0); HGB 13.4 gm/dL (13.0-17.5); MCH 32.8 pg (25.0-35.0); MCHC 34.6 g/dL (31.0-37.0); MCV 94.9 fL (80.0-100.0); Mean Platelet Volume 11.1; RBC 4.09 m/uL (4.30-5.90); RDW 15.6 % (11.5-15.5); WBC 2.5 k/uL (3.8-10.6)
[2023-02-09 05:55] LABS: Alcohol 390 mg/dL
[2023-02-09] MEDS ORDERED: IPRATROPIUM-ALBUTEROL 3 ML NEB INHALATION STA (06:02)
[2023-02-09] MEDS ORDERED: SODIUM CHLORIDE 0.9% 500 ML 500 ML IV ONE (06:02)
[2023-02-09] MEDS ORDERED: NALOXONE 0.4 MG/ML 1 ML VIAL IV PRN (06:14)
[2023-02-09] MEDS ORDERED: THIAMINE 100 MG/ML 2 ML VIAL IM STA (06:15)
[2023-02-09] MEDS: SODIUM CHLORIDE 0.9% 1,000 ML IV SCH ×2 (06:52→09:00)
[2023-02-09 06:56] LABS: Eosinophils # (M) 0.03 k/uL (0-0.7); Lymphocytes # (M) 1.58 k/uL (1.0-4.8); Monocytes # (M) 0.23 k/uL (0-1.0); Neutrophils # (M) 0.68 k/uL (1.3-7.7); Neutrophils % (M) 27 %; Nucleated Red Blood Cells 0 /100 WBC (0-0); Total Cells Counted 100
[2023-02-09 07:00] LABS: Anisocytosis (M) Present; Poikilocytosis (M) Present
[2023-02-09 07:04] LABS: Platelet Count 54 k/uL (150-450)
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
[2023-02-09] MEDS: NICOTINE 21MG/24HR PATCH TRANSDERM SCH (08:59)
[2023-02-09] MEDS: FAMOTIDINE 20 MG/2 ML VIAL IV SCH ×2 (08:59→21:21)
[2023-02-09 15:53] LABS: Appearance,Urine Clear (Clear); Bilirubin,Urine Negative (Negative); Blood,Urine Negative (Negative); Color,Urine Yellow; Glucose,Urine (UA) Negative (Negative); Ketones,Urine Negative (Negative); Leukocyte Esterase,Urine Negative (Negative); Nitrite,Urine Negative (Negative); Protein,Urine Negative (Negative); Specific Gravity,Urine 1.011 (1.001-1.035); Urobilinogen,Urine <2.0 mg/dL (<2.0)
[2023-02-09] MEDS ORDERED: SODIUM CHLORIDE 0.9% 500 ML 250 ML IV ONE (16:38)
[2023-02-09] MEDS: LORazepam 2 MG/ML INJ IV PRN ×2 (17:44→21:35)
[2023-02-10] MEDS: LORazepam 2 MG/ML INJ IV PRN ×10 (02:29→19:05)
[2023-02-10] MEDS: SODIUM CHLORIDE 0.9% 1,000 ML IV SCH (05:13)
[2023-02-10] MEDS: FAMOTIDINE 20 MG/2 ML VIAL IV SCH ×2 (08:16→20:08)
[2023-02-10] MEDS: NICOTINE 21MG/24HR PATCH TRANSDERM SCH (08:16)
[2023-02-10] MEDS: THIAMINE 100 MG TAB PO SCH (08:17)
[2023-02-10 09:28] LABS: ALT 92 U/L (10-49); AST 211 U/L (14-35); Albumin 4.6 d/dL (3.8-4.9); Alkaline Phosphatase 79 U/L (41-126); Bilirubin, Conjugated 0.32 mg/dL (0.20-0.40); Bilirubin,Unconjugated 0.58 mg/dL (0.20-1.00); Blood Urea Nitrogen 4.9 mg/dL (9.0-27.0); Calcium 8.5 mg/dL (8.7-10.3); Carbon Dioxide 21.5 mmol/L (21.6-31.8); Chloride 99 mmol/L (96-109); Globulin 2.7 d/dL (1.6-3.3); Glucose 81 mg/dL (70-110); Magnesium 1.1 mg/dL (1.5-2.4); Sodium 138 mmol/L (135-145); Total Bilirubin 0.9 mg/dL (0.3-1.2); Total Protein 7.3 d/dL (6.2-8.2)
[2023-02-10 09:53] LABS: Basophils # (A) 0.03 X 10*3/uL (0.00-0.10); Eosinophils # (A) 0.04 X 10*3/uL (0.04-0.35); Eosinophils % (A) 1.4 %; HCT 36.3 % (39.6-50.0); HGB 12.5 d/dL (12.0-15.0); Lymphocytes # (A) 0.99 X 10*3/uL (0.90-5.00); Lymphocytes % (A) 34.5 %; MCH 30.5 pg (27.0-32.0); MCHC 34.4 d/dL (32.0-37.0); MCV 88.5 FL (80.0-97.0); Monocytes # (A) 0.44 X 10*3/uL (0.20-1.00); Monocytes % (A) 15.3 %; NRBC Per 100 WBC 0 X 10*3/uL (0.00-0.01); Neutrophils # (A) 1.36 X 10*3/uL (1.80-7.70); Neutrophils % (A) 47.5 %; Platelet Count 52 X 10*3/uL (140-440); RBC Morphology Normal (Normal); RDW 15.3 % (11.5-14.5); WBC 2.87 X 10*3/uL (4.50-10.00)
[2023-02-10] MEDS ORDERED: Magnesium Replacement Protocol 1 EACH MISC MISCELLANE PRN (14:11)
[2023-02-10] MEDS: MAGNESIUM SULFATE-D5W PMX 1 GM in DEXTROSE/WATER 1 100ML.BAG IVPB SCH ×4 (14:30→19:08)
[2023-02-10 15:36] LABS: Glucose,Whole Blood 107 mg/dL (70-110)
[2023-02-10 15:49] LABS: Glucose,Whole Blood 95 mg/dL (70-110)
[2023-02-10] MEDS ORDERED: HALOPERIDOL LACTATE 5 MG/ML 1 ML VIAL IVP PRN ×3 (15:55→16:22)
[2023-02-10] MEDS: 1: MVI, ADULT NO.4 WITH VIT K 10 ML, THIAMINE 100 MG, FOLIC ACID 1 MG in SODIUM CHLORIDE IV SCH ×4 (16:01)
[2023-02-10] MEDS: DEXMEDETOMIDINE/0.9% NACL(PMX) 400 MCG in EMPTY BAG 1 BAG IV SCH ×2 (16:03→23:21)
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
[2023-02-10] MEDS: LACTATED RINGERS 1,000 ML IV SCH (17:02)
[2023-02-10] MEDS: chlordiazePOXIDE 25 MG CAP PO SCH ×2 (17:05→21:30)
[2023-02-10] MEDS: QUEtiapine 25 MG TAB PO SCH ×3 (17:05→21:31)
--- NOTE | 2023-02-10 23:06 | P.PN ---
Subjective This is a pleasant 67 years old -French male with past medical history of COPD, pulmonary embolism, emphysema, pneumonia, nicotine dependence, alcohol use disorder. Patient is sleepy but he wakes up to verbal saline and answer questions a ppropriately although he looks lethargic and weak. When asked patient he told me he forgot by he came to the hospital however as per sign out and documentation patient came complaining of from weakness for 2 days. He smokes 1 pack per day since young age. And he drinks 1 pint of alcohol drinker as well as couple beers every day however he denies other symptoms like no chest pain or dyspnea. No GI, neurological or urinary symptoms patient denies any signs symptoms of depression. he denies hallucination or delusions. He denies homicidal or suicidal ideation or plans. He denies previous hospitalization for psychiatric issue before. Patient is hemodynamically stable Labs showing mild leukopenia 2.5, hemoglobin within the reference range platelet count 54 Alcohol level elevated at 390 BMP is unremarkable Bilirubin normal 0.7. AST 219 and ALT 90 both of them are elevated. EKG showing normal sinus rhythm at [address]-T changes. 02/10/23 pt is more confused and agitated today ,his ciwa score was 14 depsite several doses of ativan q1 hour pt is at risk for self and staff i discussed the case with icu team and their input is appreciated , pt will be monitored closely in the icu with more aggressive treatment d/w staff Active Medications Generic Name Dose Route Start Last Admin Trade Name Freq PRN Reason Stop Dose Admin Chlordiazepoxide HCl 25 mg 02/10/23 16:00 02/10/23 21:30 Chlordiazepoxide 25 Mg Cap PO Not Given TID MIKAEL Famotidine 20 mg 02/09/23 09:00 02/10/23 20:08 Famotidine 20 Mg/2 Ml Vial IV 20 mg Q12HR MIKAEL Administration Haloperidol Lactate 8 mg 02/10/23 15:55 Haloperidol Lactate 5 Mg/Ml 1 Ml Vial IVP Q6H PRN Agitation or Acute Psychosis Haloperidol Lactate 4 mg 02/10/23 16:22 Haloperidol Lactate 5 Mg/Ml 1 Ml Vial IVP Q6H PRN Agitation or Acute Psychosis Parenteral Vitamin Supplement 1,011.2 mls @ 100 mls/hr 02/10/23 15:00 02/10/23 16:01 10 ml/ Thiamine HCl 100 mg/ IV 100 mls/hr Folic Acid 1 mg/ Sodium .BY DURATION MIKAEL Administration Chloride Sodium Chloride 1,000 mls @ 100 mls/hr 02/10/23 15:00 Saline 0.9% IV .BY DURATION MIKAEL Dexmedetomidine HCl 400 mcg/ 100 mls @ 3.583 mls/hr 02/10/23 16:00 02/10/23 19:09 IV Solution IV 0.4 mcg/kg/hr .Q24H MIKAEL 7.167 mls/hr Titration Protocol 0.2 MCG/KG/HR Lactated Ringer's 1,000 mls @ 100 mls/hr 02/10/23 16:00 02/10/23 17:02 Lactated Ringers IV Not Given .Q10H MIKAEL Lorazepam 1 mg 02/09/23 06:15 02/10/23 19:05 Lorazepam 2 Mg/Ml Inj IV 1 mg Q1HR PRN Administration CIWA 10 to 15 Lorazepam 1 mg 02/09/23 06:15 02/10/23 17:42 Lorazepam 2 Mg/Ml Inj IV 1 mg Q2HR PRN Administration CIWA 8 or 9 Miscellaneous Information 1 each 02/10/23 14:11 Magnesium Replacement Protocol 1 Each Misc MISCELLANE DAILY PRN Per Protocol Protocol Naloxone HCl 0.2 mg 02/09/23 06:14 Naloxone 0.4 Mg/Ml 1 Ml Vial IV Q2M PRN Opioid Reversal Nicotine 1 patch 02/09/23 09:00 02/10/23 08:16 Nicotine 21mg/24hr Patch TRANSDERM 1 patch DAILY MIKAEL Administration Pantoprazole Sodium 40 mg 02/11/23 09:00 Pantoprazole 40 Mg/10 Ml Vial IV DAILY MIKAEL Quetiapine Fumarate 25 mg 02/10/23 16:00 02/10/23 21:31 Quetiapine 25 Mg Tab PO Not Given TID MIKAEL Thiamine HCl 100 mg 02/10/23 09:00 02/10/23 08:17 Thiamine 100 Mg Tab PO 100 mg DAILY MIKAEL Administration Objective - Vital Signs Vital signs: Vital Signs Temp 98.7 F 02/10/23 12:01 Pulse 116 H 02/10/23 12:01 Resp 20 02/10/23 12:01 BP 150/95 02/10/23 12:01 Pulse Ox 97 02/10/23 12:01 FiO2 Intake & Output 02/09/23 02/10/23 02/10/23 18:59 06:59 18:59 Intake Total 1200 Output Total 300 650 Balance -300 550 Weight 71.668 kg Intake: Oral 1200 Output: Urine 300 650 Other: Voiding Method Urinal # Voids 1 1 # Bowel Movements 1 1 - Exam -GENERAL: The patient is confused and agitated. Well developed, well nourished. HEENT: Pupils are round and equally reacting to light. EOMI. No scleral icterus. No conjunctival pallor. Normocephalic, atraumatic. No pharyngeal erythema. No thyromegaly. CARDIOVASCULAR: S1 and S2 present. No murmurs, rubs, or gallops. PULMONARY: Chest is clear to auscultation, no wheezing , no crackles. ABDOMEN: Soft, nontender, nondistended, normoactive bowel sounds. No palpable organomegaly. MUSCULOSKELETAL: No joint swelling or deformity. EXTREMITIES: No cyanosis, clubbing, or pedal edema. NEUROLOGICAL: Gross neurological examination did not reveal any focal deficits. SKIN: No rashes. no petechiae. - Labs CBC & Chem 7: 02/10/23 04:29 02/10/23 04:29 Labs: Abnormal Lab Results - Last 24 Hours (Table) 02/09/23 02/09/23 02/09/23 Range/Units 15:09 18:06 20:36 WBC (4.50-10.00) X 10*3/uL RBC (4.40-5.60) X 10*6/uL Hct (39.6-50.0) % RDW (11.5-14.5) % Plt Count (140-440) X 10*3/uL Neutrophils # (1.80-7.70) X 10*3/uL Immature Plt Fraction (1.1-6.1) % Carbon Dioxide (21.6-31.8) mmol/L Anion Gap (4.00-12.00) mmol/L BUN (9.0-27.0) mg/dL BUN/Creatinine Ratio (12.00-20.00) Ratio Plasma Lactic Acid Darrick 2.5 H* 2.9 H* 2.4 H* (0.7-2.0) mmol/L Calcium (8.7-10.3) mg/dL Magnesium (1.5-2.4) mg/dL AST (14-35) U/L ALT (10-49) U/L 02/09/23 02/10/23 02/10/23 Range/Units 23:44 04:29 04:29 WBC 2.87 L (4.50-10.00) X 10*3/uL RBC 4.10 L (4.40-5.60) X 10*6/uL Hct 36.3 L (39.6-50.0) % RDW 15.3 H (11.5-14.5) % Plt Count 52 L (140-440) X 10*3/uL Neutrophils # 1.36 L (1.80-7.70) X 10*3/uL Immature Plt Fraction 14.0 H (1.1-6.1) % Carbon Dioxide 21.5 L (21.6-31.8) mmol/L Anion Gap 17.50 H (4.00-12.00) mmol/L BUN 4.9 L (9.0-27.0) mg/dL BUN/Creatinine Ratio 7.00 L (12.00-20.00) Ratio Plasma Lactic Acid Darrick 2.4 H* (0.7-2.0) mmol/L Calcium 8.5 L (8.7-10.3) mg/dL Magnesium 1.1 L (1.5-2.4) mg/dL AST 211 H (14-35) U/L ALT 92 H (10-49) U/L Assessment and Plan Assessment: delerium tremens Alcohol use disorder at risk of alcohol withdrawal Dehydration with elevated lactic acid Generalized weakness secondary to above Bicytopenia with leukopenia and thrombocytopenia most likely secondary alcoholic effect Alcoholic liver disease with AST more than ALT 221. Nicotine dependence Plan: Continue with CIWA protocol Continue with iv hydration more aggressive sedative per critical care team Monitor electrolytes, monitor WBC and platelet count Labs and medication were reviewed.. Continue same treatment. Continue with symptomatic treatment. Resume home medication. Monitor labs and vitals. DVT and GI prophylaxis. Further recommendations as per clinical course of the patient DVT prophylaxis: no Subcutaneous heparinGiven his severe thrombocytopenia, but it may be ordered if platelet count improve augments more than 50,000 GI Prophylaxis: Pepcid Prognosis is guarded
[2023-02-11] MEDS: LACTATED RINGERS 1,000 ML IV SCH (01:57)
[2023-02-11 06:13] LABS: African American GFR (CKD) >90 (>60 ml/min/1.73 sqM); Anion Gap 11 mmol/L; Blood Urea Nitrogen 6 mg/dL (9-20); Calcium 7.8 mg/dL (8.4-10.2); Carbon Dioxide 20 mmol/L (22-30); Chloride 101 mmol/L (98-107); Glucose 106 mg/dL (74-99); Magnesium 1.8 mg/dL (1.6-2.3); Non-African American GFR(CKD) >90 (>60 ml/min/1.73 sqM); Potassium 3.4 mmol/L (3.5-5.1); Sodium 132 mmol/L (137-145)
[2023-02-11 06:19] LABS: Basophils % (A) 1 %; Eosinophils # (A) 0.1 k/uL (0-0.7); Eosinophils % (A) 6 %; HCT 41.7 % (39.0-53.0); HGB 13.3 gm/dL (13.0-17.5); Lymphocytes # (A) 0.4 k/uL (1.0-4.8); Lymphocytes % (A) 30 %; MCH 31.5 pg (25.0-35.0); MCHC 31.9 g/dL (31.0-37.0); MCV 98.9 fL (80.0-100.0); Macrocytosis Slight; Monocytes # (A) 0.1 k/uL (0-1.0); Monocytes % (A) 10 %; Neutrophils # (A) 0.7 k/uL (1.3-7.7); Neutrophils % (A) 50 %; RBC 4.22 m/uL (4.30-5.90); RDW 15.1 % (11.5-15.5)
[2023-02-11] MEDS ORDERED: Magnesium Replacement Protocol 1 EACH MISC MISCELLANE PRN (06:20)
[2023-02-11] MEDS ORDERED: Potassium Replacement Protocol 1 EACH MISC MISCELLANE PRN (06:20)
[2023-02-11] MEDS ORDERED: MAGNESIUM SULFATE-D5W PMX 1 GM in DEXTROSE/WATER 1 100ML.BAG IVPB ONE (06:20)
[2023-02-11 06:40] LABS: WBC 1.4 k/uL (3.8-10.6)
[2023-02-11] MEDS: POTASSIUM CHLORIDE 10 MEQ in WATER FOR INJECTION 1 100ML.BAG IVPB SCH ×4 (07:47→11:58)
[2023-02-11 08:50] LABS: Anisocytosis (M) Present; Platelet Count 54 k/uL (150-450); Poikilocytosis (M) Present
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
[2023-02-11] MEDS: NICOTINE 21MG/24HR PATCH TRANSDERM SCH (09:26)
[2023-02-11] MEDS: THIAMINE 100 MG TAB PO SCH (09:27)
[2023-02-11] MEDS: QUEtiapine 25 MG TAB PO SCH ×3 (09:27→21:06)
[2023-02-11] MEDS: chlordiazePOXIDE 25 MG CAP PO SCH ×3 (09:27→21:06)
[2023-02-11] MEDS: FAMOTIDINE 20 MG/2 ML VIAL IV SCH ×2 (09:27→21:05)
[2023-02-11] MEDS: PANTOPRAZOLE 40 MG/10 ML VIAL IV SCH (09:27)
[2023-02-11] MEDS: 1: MVI, ADULT NO.4 WITH VIT K 10 ML, THIAMINE 100 MG, FOLIC ACID 1 MG in SODIUM CHLORIDE IV SCH ×4 (09:28)
[2023-02-11] MEDS: FOLIC ACID 1 MG TAB PO SCH (09:58)
[2023-02-11] MEDS: SODIUM CHLORIDE 0.9% 1,000 ML IV SCH (09:58)
[2023-02-11] MEDS: MULTIVITAMINS, THERA 1 EACH TAB PO SCH (09:58)
[2023-02-11] MEDS: SYMBICORT 160-4.5 MCG INHALER INHALATION SCH ×3 (12:58→19:54)
--- NOTE | 2023-02-11 13:48 | CDI ---
Documentation Clarification Form Date: 02/11/2023 01:40:42 PM From: Amber Lainez RN, CCDS Email: [email or web address] Admit Date: 02/09/2023 06:14:00 AM Patient Name: Mushtaq Aguila Visit Number: [id number] Discharge Date: ATTENTION: The Clinical Documentation Specialists (CDI) and [employer] Coding Staff appreciate your assistance in clarifying documentation. Please respond to the clarification below the line at the bottom and electronically sign. The CDI & [employer] Coding staff will review the response and follow-up if needed. Please note: Queries are made part of the Legal Health Record. If you have any questions, please contact the author of this message via ITS. Dr. Oliver E Sheet There is documentation of elevated lactic acid. Additional clarification regarding this diagnosis is requested. History/Risk Factors: heavy alcohol use disorder, COPD, smoker Clinical Indicators: ED: "He has a lactic acidosis consistent with dehydration." H&P: "Dehydration with elevated lactic acid." Labs: Lactic acid 3.3-3.3-3.4-2.5-2.9-2.4-2.4-1.2 Treatment: 02/09 0.9 NS 1L bolus. 0.9 NS @75ml/hr. LR @100ml/hr 02/11. IVF's with MVI @100ml/hr one bag/day Monitor labs Please clarify if there is an additional diagnosis: [ ] Lactic Acidosis [ ] Unable to determine [ ] Other, please specify lactic acidemia MTDD
[2023-02-11] MEDS ORDERED: ARTIFICIAL TEARS-HYPROMELLOSE DROPS 15 ML BTL BOTH EYES PRN (15:19)
--- NOTE | 2023-02-11 19:43 | P.PN ---
Subjective This is a pleasant 67 years old -Portuguese male with past medical history of COPD, pulmonary embolism, emphysema, pneumonia, nicotine dependence, alcohol use disorder. Patient is sleepy but he wakes up to verbal saline and answer questions a ppropriately although he looks lethargic and weak. When asked patient he told me he forgot by he came to the hospital however as per sign out and documentation patient came complaining of from weakness for 2 days. He smokes 1 pack per day since young age. And he drinks 1 pint of alcohol drinker as well as couple beers every day however he denies other symptoms like no chest pain or dyspnea. No GI, neurological or urinary symptoms patient denies any signs symptoms of depression. he denies hallucination or delusions. He denies homicidal or suicidal ideation or plans. He denies previous hospitalization for psychiatric issue before. Patient is hemodynamically stable Labs showing mild leukopenia 2.5, hemoglobin within the reference range platelet count 54 Alcohol level elevated at 390 BMP is unremarkable Bilirubin normal 0.7. AST 219 and ALT 90 both of them are elevated. EKG showing normal sinus rhythm at [address]-T changes. 02/10/23 pt is more confused and agitated today ,his ciwa score was 14 depsite several doses of ativan q1 hour pt is at risk for self and staff i discussed the case with icu team and their input is appreciated , pt will be monitored closely in the icu with more aggressive treatment d/w staff 02/11/2023 Patient remains in the ICU is still encephalopathic from severe alcohol withdrawal. His CIWA protocol score was today was up to 25, currently is controlled on 21 Precedex. Precedex was a rate of 0.5-0.7 and currently weaned down to 0.3 and with a plan to taper it off while continuing with CIWA Ativan protocol as well as antipsychotic medication like Haldol and Seroquel when necessary. Also patient is on chlordiazepoxide scheduled dose. Patient showing slight improvement. He has evidence of severe bicytopenia with doubly BC 1.4 platelet count 54. Most likely secondary to alcoholic effect on the bone marrow. Patient currently covered with folic acids. We have gone to check vitamin B12 as well Active Medications Generic Name Dose Route Start Last Admin Trade Name Freq PRN Reason Stop Dose Admin Artificial Tears 2 drops 02/11/23 15:19 02/11/23 16:51 Artificial Tears-Hypromellose Drops 15 Ml Btl BOTH EYES 2 drops TID PRN Administration Dry Eye(s) Budesonide/Formoterol Fumarate 2 puff 02/11/23 12:17 02/11/23 15:25 Symbicort 160-4.5 Mcg Inhaler INHALATION 2 puff RT-BID MIKAEL Administration Chlordiazepoxide HCl 25 mg 02/10/23 16:00 02/11/23 16:44 Chlordiazepoxide 25 Mg Cap PO 25 mg TID MIKAEL Administration Famotidine 20 mg 02/09/23 09:00 02/11/23 09:27 Famotidine 20 Mg/2 Ml Vial IV 20 mg Q12HR MIKAEL Administration Folic Acid 1 mg 02/11/23 10:00 02/11/23 09:58 Folic Acid 1 Mg Tab PO 1 mg DAILY MIKAEL Administration Haloperidol Lactate 8 mg 02/10/23 15:55 Haloperidol Lactate 5 Mg/Ml 1 Ml Vial IVP Q6H PRN Agitation or Acute Psychosis Haloperidol Lactate 4 mg 02/10/23 16:22 Haloperidol Lactate 5 Mg/Ml 1 Ml Vial IVP Q6H PRN Agitation or Acute Psychosis Sodium Chloride 1,000 mls @ 100 mls/hr 02/11/23 10:00 02/11/23 09:58 Saline 0.9% IV 100 mls/hr .Q10H MIKAEL Administration Lorazepam 1 mg 02/09/23 06:15 02/10/23 19:05 Lorazepam 2 Mg/Ml Inj IV 1 mg Q1HR PRN Administration CIWA 10 to 15 Lorazepam 1 mg 02/09/23 06:15 02/10/23 17:42 Lorazepam 2 Mg/Ml Inj IV 1 mg Q2HR PRN Administration CIWA 8 or 9 Miscellaneous Information 1 each 02/10/23 14:11 Magnesium Replacement Protocol 1 Each Misc MISCELLANE DAILY PRN Per Protocol Protocol Miscellaneous Information 1 each 02/11/23 06:20 Potassium Replacement Protocol 1 Each Misc MISCELLANE DAILY PRN Per Protocol Protocol Multivitamins 1 each 02/11/23 10:00 02/11/23 09:58 Multivitamins, Thera 1 Each Tab PO 1 each DAILY MIKAEL Administration Naloxone HCl 0.2 mg 02/09/23 06:14 Naloxone 0.4 Mg/Ml 1 Ml Vial IV Q2M PRN Opioid Reversal Nicotine 1 patch 02/09/23 09:00 02/11/23 09:26 Nicotine 21mg/24hr Patch TRANSDERM 1 patch DAILY MIKAEL Administration Pantoprazole Sodium 40 mg 02/11/23 09:00 02/11/23 09:27 Pantoprazole 40 Mg/10 Ml Vial IV 40 mg DAILY MIKAEL Administration Quetiapine Fumarate 25 mg 02/10/23 16:00 02/11/23 16:44 Quetiapine 25 Mg Tab PO 25 mg TID MIKAEL Administration Thiamine HCl 100 mg 02/10/23 09:00 02/11/23 09:27 Thiamine 100 Mg Tab PO 100 mg DAILY MIKAEL Administration Objective - Vital Signs Vital signs: Vital Signs Temp 98.2 F 02/11/23 04:00 Pulse 69 02/11/23 07:00 Resp 18 02/11/23 07:00 BP 136/99 02/11/23 07:00 Pulse Ox 98 02/11/23 07:00 FiO2 Intake & Output 02/10/23 02/11/23 02/11/23 18:59 06:59 18:59 Intake Total 536.923 9223.098 700 Output Total 0 450 0 Balance 619.170 909.098 700 Weight 73.9 kg Intake: IV 500 Magnesium Sulfate-D5w Pmx 100 1 gm In Dextrose/Water 1 100ml.bag @ 100 mls/hr IVPB ONCE ONE Rx#: [id number] Potassium Chloride 10 meq 200 In Water For Injection 1 100ml.bag @ 100 mls/hr IVPB Q1HR [facility] Rx#: [id number] Sodium Chloride 0.9% 1, 200 000 ml @ 100 mls/hr IV . BY DURATION [facility] Rx#: [id number] Intake, IV Titration 422.780 1820.098 200 Amount Dexmedetomidine/0.9% NaCl 19.170 59.098 (Pmx) 400 mcg In Empty Bag 1 bag @ 0.2 MCG/KG/HR 3.583 mls/hr IV .Q24H [facility] Rx#:[id number] Lactated Ringers 1,000 ml 600 100 @ 100 mls/hr IV .Q10H [facility] Rx#:[id number] Magnesium Sulfate-D5w Pmx 100 1 gm In Dextrose/Water 1 100ml.bag @ 100 mls/hr IVPB ONCE ONE Rx#: [id number] Magnesium Sulfate-D5w Pmx 300 200 1 gm In Dextrose/Water 1 100ml.bag @ 100 mls/hr IVPB Q1H [facility] Rx#: [id number] Mvi, Adult No.4 with Vit 300 500 K 10 ml Thiamine 100 mg Folic Acid 1 mg In Sodium Chloride 0.9% 1,000 ml @ 100 mls/hr IV .BY DURATION MIKAEL Rx#: [id number] Output: Urine 0 450 0 Other: Voiding Method External Catheter External Catheter # Voids 1 # Bowel Movements 1 - Exam -GENERAL: The patient is confused and agitated. Well developed, well nourished. HEENT: Pupils are round and equally reacting to light. EOMI. No scleral icterus. No conjunctival pallor. Normocephalic, atraumatic. No pharyngeal erythema. No thyromegaly. CARDIOVASCULAR: S1 and S2 present. No murmurs, rubs, or gallops. PULMONARY: Chest is clear to auscultation, no wheezing , no crackles. ABDOMEN: Soft, nontender, nondistended, normoactive bowel sounds. No palpable organomegaly. MUSCULOSKELETAL: No joint swelling or deformity. EXTREMITIES: No cyanosis, clubbing, or pedal edema. NEUROLOGICAL: Gross neurological examination did not reveal any focal deficits. SKIN: No rashes. no petechiae. - Labs CBC & Chem 7: 02/11/23 05:41 02/11/23 13:05 Labs: Abnormal Lab Results - Last 24 Hours (Table) 02/11/23 02/11/23 Range/Units 05:41 05:41 WBC 1.4 L* (3.8-10.6) k/uL RBC 4.22 L (4.30-5.90) m/uL Plt Count 54 L (150-450) k/uL Neutrophils # 0.7 L (1.3-7.7) k/uL Lymphocytes # 0.4 L (1.0-4.8) k/uL Sodium 132 L (137-145) mmol/L Potassium 3.4 L (3.5-5.1) mmol/L Carbon Dioxide 20 L (22-30) mmol/L BUN 6 L (9-20) mg/dL Creatinine 0.48 L (0.66-1.25) mg/dL Glucose 106 H (74-99) mg/dL Calcium 7.8 L (8.4-10.2) mg/dL Assessment and Plan Assessment: delerium tremens, severe Alcohol use disorder at risk of alcohol withdrawal Severe bicytopenia, leukopenia and thrombocytopenia secondary to alcohol.. Dehydration with elevated lactic acid Generalized weakness secondary to above Bicytopenia with leukopenia and thrombocytopenia most likely secondary alcoholic effect Alcoholic liver disease with AST more than ALT 221. Nicotine dependence Plan: Monitoring and managing him in the ICU with pulmonary/critical care consult Continue with CIWA protocol Continue with iv hydration Check vitamin B12 which tends to be deficient and alcoholic patient's Monitor electrolytes, monitor WBC and platelet count Labs and medication were reviewed.. Continue same treatment. Continue with sy mptomatic treatment. Resume home medication. Monitor labs and vitals. DVT and GI prophylaxis. Further recommendations as per clinical course of the patient DVT prophylaxis: no Subcutaneous heparinGiven his severe thrombocytopenia, but it may be ordered if platelet count improve augments more than 50,000 GI Prophylaxis: Pepcid Prognosis is guarded
[2023-02-12] MEDS: LORazepam 2 MG/ML INJ IV PRN (01:00)
[2023-02-12] MEDS: SODIUM CHLORIDE 0.9% 1,000 ML IV SCH ×2 (02:44→10:56)
[2023-02-12 04:50] LABS: African American GFR (CKD) >90 (>60 ml/min/1.73 sqM); Anion Gap 8 mmol/L; Blood Urea Nitrogen 6 mg/dL (9-20); Carbon Dioxide 23 mmol/L (22-30); Chloride 103 mmol/L (98-107); Glucose 97 mg/dL (74-99); Magnesium 1.6 mg/dL (1.6-2.3); Non-African American GFR(CKD) >90 (>60 ml/min/1.73 sqM); Potassium 3.6 mmol/L (3.5-5.1); Sodium 134 mmol/L (137-145)
[2023-02-12 04:53] LABS: Basophils % (A) 1 %; Eosinophils # (A) 0.1 k/uL (0-0.7); Eosinophils % (A) 5 %; HGB 12.3 gm/dL (13.0-17.5); Lymphocytes # (A) 0.7 k/uL (1.0-4.8); Lymphocytes % (A) 30 %; MCH 30.5 pg (25.0-35.0); MCHC 31.7 g/dL (31.0-37.0); MCV 96.3 fL (80.0-100.0); Monocytes # (A) 0.2 k/uL (0-1.0); Monocytes % (A) 9 %; Neutrophils # (A) 1.3 k/uL (1.3-7.7); Neutrophils % (A) 53 %; Platelet Count 63 k/uL (150-450); RBC 4.05 m/uL (4.30-5.90); RDW 15.2 % (11.5-15.5); WBC 2.4 k/uL (3.8-10.6)
[2023-02-12 07:37] VITALS: BP 159/94; PULSE 92; RESP 18; TEMP 98.4
[2023-02-12] MEDS: THIAMINE 100 MG TAB PO SCH (08:47)
[2023-02-12] MEDS: QUEtiapine 25 MG TAB PO SCH (08:47)
[2023-02-12] MEDS: FOLIC ACID 1 MG TAB PO SCH (08:47)
[2023-02-12] MEDS: MULTIVITAMINS, THERA 1 EACH TAB PO SCH (08:47)
[2023-02-12] MEDS: NICOTINE 21MG/24HR PATCH TRANSDERM SCH (08:47)
[2023-02-12] MEDS: chlordiazePOXIDE 25 MG CAP PO SCH (08:47)
[2023-02-12] MEDS: SYMBICORT 160-4.5 MCG INHALER INHALATION SCH (09:43)
[2023-02-12] MEDS: FAMOTIDINE 20 MG/2 ML VIAL IV SCH (10:54)
[2023-02-12] MEDS: PANTOPRAZOLE 40 MG/10 ML VIAL IV SCH (10:54)
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
== END 2023-02-12 12:46 | disposition home or self-care (01) | DRG 897 ==
LOC: EC 04:44 → OBSVTOIN 06:14 → 6NMEDSUR 06:14 → 5NMEDONC 08:09 → 2SICU 02-10 15:44 → 4SSUR 02-12 04:55
PROVIDERS: ADMIT Internal Medicine; ATTEND Internal Medicine
DX: F10.129 Alcohol abuse with intoxication, unspecified (principal); E87.20 Acidosis, unspecified; F23 Brief psychotic disorder; G93.40 Encephalopathy, unspecified; Y90.8 Blood alcohol level of 240 mg/100 ml or more; F10.131 Alcohol abuse with withdrawal delirium; Z28.310 Unvaccinated for COVID-19; R45.1 Restlessness and agitation; D72.819 Decreased white blood cell count, unspecified; Z71.41 Alcohol abuse counseling and surveillance of alcoholic; E86.0 Dehydration; F17.210 Nicotine dependence, cigarettes, uncomplicated; J43.9 Emphysema, unspecified; K70.9 Alcoholic liver disease, unspecified; D69.59 Other secondary thrombocytopenia; Z79.51 Long term (current) use of inhaled steroids; Z86.711 Personal history of pulmonary embolism; Z87.01 Personal history of pneumonia (recurrent)
CPT/HCPCS: 36415; 71046; 80048; 80053; 80076; 80320; 81003; 82607; 82746; 83605; 83735; 84132; 84484; 85025; 85610; 85730; 93005; 94640; 96360; 96361; 99285